=== PATIENT | male | born 1945 | race Caucasian/White ===

== ENCOUNTER → 2016-11-26 | Outpatient (CLI) | payer OTHER | LOC: BMCIMAGING 09:48 | PROVIDERS: ATTEND Emergency Medicine | DX: S52.501A Unspecified fracture of the lower end of right radius, initial encounter for closed fracture (principal) ==

== ENCOUNTER → 2016-11-28 | Outpatient (CLI) | payer OTHER | LOC: BMCIMAGING 11:38 | PROVIDERS: ATTEND Emergency Medicine | DX: S52.501A Unspecified fracture of the lower end of right radius, initial encounter for closed fracture (principal); M79.89 Other specified soft tissue disorders ==

== ENCOUNTER → 2016-12-27 | Outpatient (CLI) | payer OTHER | LOC: BMCIMAGING 09:19 | PROVIDERS: ATTEND Physician Assistant | DX: S52.501D Unspecified fracture of the lower end of right radius, subsequent encounter for closed fracture with routine healing (principal) ==

== ENCOUNTER → 2017-01-20 | Outpatient (CLI) | payer OTHER | LOC: BMCIMAGING 09:31 | PROVIDERS: ATTEND Internal Medicine | DX: Z13.6 Encounter for screening for cardiovascular disorders (principal) ==

== ENCOUNTER → 2017-02-07 | Outpatient (CLI) | payer OTHER ==
--- NOTE | 2017-02-07 14:04 | CPEEG ---
[f rep st] ELECTROENCEPHALOGRAM ELECTROENCEPHALOGRAM. DATE OF STUDY: 02/07/2017 INTERPRETATION: Normal EEG during wakefulness and sleep. There were no potentially epileptogenic a bnormalities present during the recording. REPORT: This EEG contains 9 Hz alpha activity over the posterior head regions. There was no abnorm al activation at rest, during photic stimulation, or hyperventilation. The patient became drowsy an d fell asleep during the study. There was no abnormal activation during drowsiness, sleep, or durin g times of arousal. /[id number]/MODL
== END ==
LOC: FCPNEURO 10:51
PROVIDERS: ATTEND Psychiatry & Neurology Neurology
DX: R47.9 Unspecified speech disturbances (principal)

== ENCOUNTER → 2017-02-12 | Outpatient (CLI) | payer OTHER ==
[~2017-02-12] MED LIST: GADOBUTROL 10 ML VIAL IVP ONE
== END ==
LOC: FIMAGING 06:41
PROVIDERS: ATTEND Psychiatry & Neurology Neurology
DX: R90.89 Other abnormal findings on diagnostic imaging of central nervous system (principal); R47.9 Unspecified speech disturbances
CPT/HCPCS: A9585

== ENCOUNTER → 2017-08-05 | Outpatient (CLI) | payer OTHER | LOC: FCPNEURO 08:21 | PROVIDERS: ATTEND Internal Medicine Sleep Medicine | DX: G47.33 Obstructive sleep apnea (adult) (pediatric) (principal) ==

== ENCOUNTER 2017-09-17 15:38 | Emergency (ER) | payer OTHER ==
[2017-09-17 15:52] VITALS: TEMP 97.9
--- NOTE | 2017-09-17 16:10 | EDPHY ---
H & P Stated Complaint: Hematochezia Time Seen by Provider: 09/17/17 16:09 HPI/ROS: CHIEF COMPLAINT: Hematochezia HISTORY OF PRESENT ILLNESS: The patient presents to the ED with painless hematochezia. The patient is currently anticoagulated for atrial fibrillation with Coumadin. The patient reports no prior history of abdominal pathology. He believes his last colonoscopy was approximately a year and half ago. The patient has a remote history of internal hemorrhoids. The patient denies any lightheadedness or other concerns. REVIEW OF SYSTEMS: A comprehensive 10 point review of systems is otherwise negative aside from elements mentioned in the history of present illness. Source: Patient - Personal History Current Tetanus/Diphtheria Vaccine: Yes - Medical/Surgical History Hx Asthma: No Hx Chronic Respiratory Disease: No Hx Diabetes: No Hx Cardiac Disease: Yes Hx Renal Disease: No Hx Cirrhosis: No Hx Alcoholism: No Hx HIV/AIDS: No Hx Splenectomy or Spleen Trauma: No Other PMH: afib - Social History Smoking Status: Never smoked - Physical Exam Exam: General Appearance: Alert, no distress Eyes: Pupils equal and round no pallor or injection ENT, Mouth: Mucous membranes moist Respiratory: There are no retractions, lungs are clear to auscultation Cardiovascular: Regular rate and rhythm Gastrointestinal: Abdomen is soft and nontender, no masses, bowel sounds normal Rectal: Mild hematochezia noted on digital rectal exam Neurological: 5/5 strength all 4 extremities Skin: Warm and dry, no rashes Musculoskeletal: Neck is supple nontender Extremities: symmetrical, full range of motion Constitutional: Initial Vital Signs Temperature (C) 36.6 C 09/17/17 15:49 Heart Rate 66 09/17/17 15:49 Respiratory Rate 18 09/17/17 15:49 Blood Pressure 130/84 H 09/17/17 15:49 O2 Sat (%) 97 09/17/17 15:49 O2 Delivery Mode Room Air Allergies/Adverse Reactions: No Known Allergies Allergy (Unverified 09/17/17 15:49) Home Medications: Medication Instructions Recorded Coumadin 09/17/17 Medical Decision Making ED Course/Re-evaluation: The patient presents to the ED with painless hematochezia. The patient's INR is 1.6. He has no evidence of a critical anemia. The patient reported that while he was in the emergency department he noted decreased hematochezia. The patient was observed in the emergency department for 2 hr without the development of significant hematochezia. I discussed his presentation with his jacket changer Dr. Delacruz. At this point time there is no evidence of critical hematochezia, anemia or hypotension. The patient will be discharged home and follow up with Dr. Delacruz for any ongoing mild hematochezia. The patient has been instructed to return to the ED for significantly worsening hematochezia or abdominal pain. The patient has no clinical evidence of diverticulitis or an intra-abdominal process. Differential Diagnosis: Differential diagnosis considered includes diverticular bleed - Data Points Laboratory Results: Laboratory Results 09/17/17 16:17 09/17/17 16:17 09/17/17 09/17/17 09/17/17 16:17 16:17 16:17 WBC 8.19 10^3/uL 10^3/uL (3.80-9.50) RBC 4.68 10^6/uL 10^6/uL (4.40-6.38) Hgb 15.5 g/dL g/dL (13.7-17.5) Hct 45.3 % % (40.0-51.0) MCV 96.8 fL fL (81.5-99.8) MCH 33.1 pg pg (27.9-34.1) MCHC 34.2 g/dL g/dL (32.4-36.7) RDW 11.9 % % (11.5-15.2) Plt Count 260 10^3/uL 10^3/uL (150-400) MPV 9.7 fL fL (8.7-11.7) Neut % (Auto) 68.7 % % (39.3-74.2) Lymph % (Auto) 19.2 % % (15.0-45.0) [place] % (Auto) 9.4 % % (4.5-13.0) Eos % (Auto) 1.8 % % (0.6-7.6) Baso % (Auto) 0.4 % % (0.3-1.7) Nucleat RBC Rel Count 0.0 % % (0.0-0.2) Absolute Neuts (auto) 5.63 10^3/uL 10^3/uL (1.70-6.50) Absolute Lymphs (auto) 1.57 10^3/uL 10^3/uL (1.00-3.00) Absolute Monos (auto) 0.77 10^3/uL 10^3/uL (0.30-0.80) Absolute Eos (auto) 0.15 10^3/uL 10^3/uL (0.03-0.40) Absolute Basos (auto) 0.03 10^3/uL 10^3/uL (0.02-0.10) Absolute Nucleated RBC 0.00 10^3/uL 10^3/uL (0-0.01) Immature Gran % 0.5 % % (0.0-1.1) Immature Gran # 0.04 10^3/uL 10^3/uL (0.00-0.10) PT 19.2 SEC H SEC (12.0-15.0) INR 1.60 H (0.83-1.16) Sodium 139 mEq/L mEq/L (135-145) Potassium 4.2 mEq/L mEq/L (3.5-5.2) Chloride 102 mEq/L mEq/L (97-110) Carbon Dioxide 29 mEq/l mEq/l (22-31) Anion Gap 8 mEq/L mEq/L (8-16) BUN 20 mg/dL mg/dL (7-23) Creatinine 0.9 mg/dL mg/dL (0.7-1.3) Estimated GFR > 60 Glucose 87 mg/dL mg/dL (70-100) Calcium 9.1 mg/dL mg/dL (8.5-10.4) Departure - Departure Disposition: Home, Routine, Self-Care Clinical Impression: Hematochezia Condition: Good Instructions: Rectal Bleeding (ED) Additional Instructions: 1. Please return to the emergency department for any abdominal pain, worsening intestinal bleeding or other concerns. 2. Please contact Dr. Delacruz, your jacket changer, to schedule a follow-up visit. Referrals: Almaz Arevalo MD [Primary Care Provider] - As per Instructions [place] Delacruz MD [place] [place] - As per Instructions
[2017-09-17 16:26] LABS: PLATELET COUNT 260 10^3/uL (150-400)
[2017-09-17 16:40] LABS: INR 1.6 (0.83-1.16); PROTIME(PATIENT) 19.2 SEC (12.0-15.0)
[2017-09-17 17:30] VITALS: BP 137/86; PULSE 72; RESP 16; O2SAT 96
== END 2017-09-17 17:38 | disposition home or self-care (01) ==
DX: K92.1 Melena (principal); Z79.01 Long term (current) use of anticoagulants

== ENCOUNTER 2017-12-23 07:41 | Day surgery (SDC) | payer OTHER ==
[2017-12-23] MEDS ORDERED: FAMOTIDINE 20 MG TAB PO ONE (07:43)
[2017-12-23] MEDS ORDERED: diphenhydrAMINE 25 MG CAP PO ONE (07:43)
[2017-12-23] MEDS ORDERED: DIAZEPAM 5 MG TAB PO ONE (07:43)
[2017-12-23] MEDS ORDERED: ASPIRIN EC 325 MG TAB PO ONE (07:43)
[2017-12-23] MEDS ORDERED: NS 1,000 ML IV ONE (07:43)
--- NOTE | 2017-12-23 08:02 | CPEKG ---
Heart Rate: 74 RR Interval: 811 P-R Interval: 152 QRSD Interval: 94 QT Interval: 428 QTC Interval: 475 P [place]: 49 QRS [place]: 38 T Wave [place]on: 6 EKG Severity - ABNORMAL ECG - EKG Impression: SINUS RHYTHM EKG Impression: VENTRICULAR PREMATURE COMPLEX Electronically Signed By: Cm Stephenson 25-Dec-2017 22:03:28
[2017-12-23 08:20] LABS: PLATELET COUNT 222 10^3/uL (150-400)
[2017-12-23 08:28] LABS: INR 1.02 (0.83-1.16); PROTIME(PATIENT) 13.6 SEC (12.0-15.0)
--- NOTE | 2017-12-23 08:29 | PDHPUP ---
History & Physical Update H&P update statement: This history and physical update is based on an assessment of the patient which was completed after admission or registration (within 24 hours), but prior to the surgery/procedure. H&P update: H&P reviewed & patient examined (Discussed at length the need for dual antiplatelet therapy in the setting of a stent. Patient and agreed to take the medication if needed. Ad Hoc PCI was discussed. Option given to have a surgical consultation prior.), no change in patient's condition since H&P completed
--- NOTE | 2017-12-23 08:30 | PDPROPOC ---
Sedation Plan of Care Sedation Plan of Care: vital signs stable, mental status noted, patient educated of risks, benefits, alternatives, patient can tolerate sedation ASA Classification: ASA 2 Planned drugs: fentanyl, midazolam Mallampati Score: Class 1 Mallampati Reference Image: Patient passed 3-3-2 rule?: Yes
[2017-12-23] MEDS ORDERED: LIDOCAINE 1% 300 MG/30 ML SDV ONE (08:55)
[2017-12-23] MEDS ORDERED: fentaNYL 100 MCG/2 ML INJ ONE (08:55)
[2017-12-23] MEDS ORDERED: MIDAZOLAM 2 MG/2 ML VIAL ONE (08:56)
[2017-12-23] MEDS ORDERED: VERAPAMIL 5 MG/2 ML VIAL ONE (08:56)
[2017-12-23] MEDS ORDERED: IOPAMIDOL (ISOVUE-370) 150 ML BTL IV ONE (08:57)
--- NOTE | 2017-12-23 09:43 | PDDXCAT ---
Diagnostic Cath Note - . Date: 12/23/17 Dry Pan Operator: Bradly Indication: CCC Class III and IV angina on medical treatment, other (Positive exercise tolerance test.) - Procedure Access: right groin Procedure: left heart catheterization, coronary angiography - Materials Left Heart Cath size: 6F Left Heart Cath materials: standard multipack (JL4, JR4, pigtail) - Findings-Left Heart Catheterization LM: Normal LAD: Normal LCX: Normal RCA: Dominant: Normal EDP: 14 mmHg LVEF: 65% Wall motion: Normal Complications: none Estimated blood loss: <50ml Closure method: Angioseal Assessment: Normal Cors. Normal LV function. Pain likely GI in origin. Plan: PPI for 30 days. Clinical follow up. Expand differential diagnosis.
== END 2017-12-23 17:26 | disposition home or self-care (01) ==
LOC: FCATH 07:41
PROVIDERS: ATTEND Internal Medicine Interventional Cardiology
PROC: 4A023N7 Measurement of Cardiac Sampling and Pressure, Left Heart, Percutaneous Approach (ICD-10-PCS; principal; 2017-12-23)
PROC: B2151ZZ Fluoroscopy of Left Heart using Low Osmolar Contrast (ICD-10-PCS; principal; 2017-12-23)
PROC: B2111ZZ Fluoroscopy of Multiple Coronary Arteries using Low Osmolar Contrast (ICD-10-PCS; principal; 2017-12-23)
DX: I20.8 Other forms of angina pectoris (principal); I25.10 Atherosclerotic heart disease of native coronary artery without angina pectoris; R94.30 Abnormal result of cardiovascular function study, unspecified
CPT/HCPCS: C1760; J1644; J2250; J3010; Q9967